=== PATIENT | male | born 1975 | race Caucasian/White ===

== ENCOUNTER 2023-07-05 16:10 | Emergency (ER) | payer OTHER ==
--- NOTE | 2023-07-05 16:15 | ERPHSYRPT ---
- History of Present Illness Time Seen by Provider: 07/05/23 16:15 Source: patient Exam Limitations: no limitations Physician History: This is a 48-year-old white male patient who is obese and presents with bilateral leg swelling right side worse than left. He has had this issue intermittently for the last 3 years. He has no known clotting disorder. He has not had any recent long travel in a car or airplane. He does have a history of IV drug abuse. He has a history of asthma, hyperlipidemia, hypertension and narcolepsy. He denies chest pain. He denies shortness of breath and he denies cough and he denies hemoptysis. Method of Injury: other (No injury) Severity of Pain-Max: none Severity of Pain-Current: none Lower Extremities Pain: other: bilateral (No pain just swelling right below the knee greater than left) Modifying Factors: Improves With: nothing Associated Symptoms: none Allergies/Adverse Reactions: No Known Drug Allergies Allergy (Verified 07/05/23 16:45) Home Medications: Buprenorphine HCl/Naloxone HCl [Buprenorphin-Naloxon 8-2 mg Sl] 2.5 each SL DAILY 07/05/23 [History] Hx Tetanus, Diphtheria Vaccination/Date Given: No Hx Influenza Vaccination/Date Given: No Hx Pneumococcal Vaccination/Date Given: No Travel Risk - International Travel Have you traveled outside of the country in past 3 weeks: No - Coronavirus Screening Are you exhibiting any of the following symptoms?: No Close contact with a COVID-19 positive Pt in past 14-21 Days: No - Review of Systems Constitutional: No Symptoms Eyes: No Symptoms Ears, Nose, & Throat: No Symptoms Respiratory: No Symptoms Cardiac: No Symptoms Abdominal/Gastrointestinal: No Symptoms Genitourinary Symptoms: No Symptoms Musculoskeletal: No Symptoms Skin: No Symptoms, Other Neurological: No Symptoms Psychological: No Symptoms - Past Medical History Pertinent Past Medical History: Yes Neurological History: No Pertinent History ENT History: No Pertinent History Cardiac History: High Cholesterol, Hypertension Respiratory History: Asthma Endocrine Medical History: No Pertinent History Musculoskeletal History: No Pertinent History GI Medical History: No Pertinent History History: No Pertinent History Psycho-Social History: No Pertinent History Male Reproductive Disorders: No Pertinent History Other Medical History: narcolepsy - Past Surgical History Past Surgical History: Yes Neuro Surgical History: No Pertinent History Cardiac: No Pertinent History Respiratory: No Pertinent History Gastrointestinal: Hernia Repair Genitourinary: No Pertinent History Musculoskeletal: No Pertinent History Male Surgical History: No Pertinent History Other Surgical History: TEETH REMOVED - Social History Smoking Status: Current every day smoker How long have you smoked: 20 Exposure to second hand smoke: No Drug Use: none Patient Lives Alone: No - Nursing Vital Signs Nursing Vital Signs: Initial Vital Signs Temperature 97.4 F 07/05/23 16:32 Pulse Rate 94 H 07/05/23 16:32 Blood Pressure 157/104 07/05/23 16:32 O2 Sat by Pulse Oximetry 95 07/05/23 16:32 Pain Scale Pain Intensity 0 - Physical Exam General Appearance: no apparent distress, alert, anxiety Eyes, Ears, Nose, Throat Exam: normal ENT inspection, moist mucous membranes Neck Exam: normal inspection, non-tender, supple, full range of motion Cardiovascular/Respiratory Exam: chest non-tender, no respiratory distress Gastrointestinal/Abdominal Exam: non-tender Back Exam: normal inspection, normal range of motion, No CVA tenderness, No vertebral tenderness Hips Exam: bilateral: non-tender, normal inspection, normal range of motion, no evidence of injury Legs Exam: bilateral leg: non-tender, normal inspection, normal range of motion, no evidence of injury Knees Exam: bilateral knee: non-tender, normal inspection, normal range of motion, no evidence of injury Ankle Exam: bilateral ankle: swelling (Right side worse than left), other (Chr onic venous stasis disease right side greater than left side.) Foot Exam: bilateral foot: non-tender, normal inspection, normal range of motion, no evidence of injury Neuro/Tendon Exam: normal sensation, normal motor functions, normal tendon functions Mental Status Exam: alert, oriented x 3, cooperative Skin Exam: other (Chronic venous stasis disease/pigmentation right side worse than left) SpO2 Interpretation: normal O2 Delivery: Room Air - Course Nursing assessment & vital signs reviewed: Yes Ordered Tests: Active Orders 24 hr Category Date Time Status ULTRASOUND BILATERAL LOWER EXTREMITY [VENOUS BILATERAL Exams 07/05/23 17:32 Taken EXTREMITY] [US] Stat BMP Stat Lab 07/05/23 18:15 Completed Lab/Rad Data: Laboratory Result Diagrams 07/05/23 18:15 Laboratory Results 07/05/23 Range/Units 18:15 Sodium 142 (137-145) mmol/L Potassium 4.0 (3.5-5.1) mmol/L Chloride 107 (98-107) mmol/L Carbon Dioxide 25 (22-30) mmol/L Anion Gap 14.2 (5-15) MEQ/L BUN 17 (9-20) mg/dL Creatinine 1.20 (0.66-1.25) mg/dL Estimated GFR > 60.0 ML/MIN Glucose 105 (74-106) mg/dL Calcium 9.0 (8.4-10.2) mg/dL - Progress Progress: unchanged Progress Note: 07/05/23 18:17 This patient's medical issue is 1 of moderate complexity the level of complexity in the work-up performed is based on review of the patient's past medical history, review of the patient's medication list, review of the patient's drug allergy list, history of present illness and physical findings on examination. The work-up in this patient includes placement of an intravenous line, CBC, BMP, bilateral lower extremity venous ultrasound. Venous ultrasound was interpreted by the car sales consultant/technologist. The patient has greater saphenous vein nonoccluded thrombus seen from proximal thigh to distal calf bilaterally. These appear old. There is no evidence of deep venous thromboses 07/05/23 18:53 07/05/23 18:53 Patient left AGAINST MEDICAL ADVICE. He did not want to wait for pending laboratory results or discharge/follow-up instructions. Patient is awake alert oriented and is aware his actions of leaving AGAINST MEDICAL ADVICE may cause him harm if there are any significant abnormalities on his laboratory studies. He is to sign AGAINST MEDICAL ADVICE form. 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 Follow-up with your primary care provider on 07/08/2023 for further evaluation management.
[2023-07-05 16:45] VITALS: BP 157/104; PULSE 94; TEMP 97.4; O2SAT 95
[2023-07-05 18:31] LABS: ANION GAP 14.2 MEQ/L (5-15); BLOOD UREA NITROGEN 17 mg/dL (9-20); CHLORIDE 107 mmol/L (98-107); Carbon Dioxide 25 mmol/L (22-30); EST GLOMERULAR FILTRATION RATE > 60.0 ML/MIN; Glucose 105 mg/dL (74-106); SODIUM 142 mmol/L (137-145)
--- NOTE | 2023-07-05 23:17 | XRAY ---
Indication: Bilateral leg swelling. 2-dimensional sonogram and color Doppler imaging of the major venous vessels of the left and right leg performed. Comparison: None Nonoccluding thrombi seen throughout the greater saphenous vein bilaterally. No thrombus seen in the deep venous vessels of the left and right leg. Patent veins demonstrate normal compressibility and normal venous waveforms. Impression: Nonoccluding thrombi both greater saphenous veins. Comment: Preliminary report was given.
== END 2023-07-05 18:54 | disposition left against medical advice (07) ==
LOC: ED 16:10
DX: I82.813 Embolism and thrombosis of superficial veins of lower extremities, bilateral (principal); E78.5 Hyperlipidemia, unspecified; I10 Essential (primary) hypertension; Z79.891 Long term (current) use of opiate analgesic; Z72.0 Tobacco use
CPT/HCPCS: 36415; 80048; 93970; 99283

== ENCOUNTER 2024-02-09 01:59 | Emergency (ER) | payer OTHER ==
[2024-02-09 02:10] VITALS: RESP 16; TEMP 97
--- NOTE | 2024-02-09 02:12 | ERPHSYRPT ---
- History of Present Illness Time Seen by Provider: 02/09/24 02:12 Source: patient Exam Limitations: no limitations Physician History: This is a 48-year-old white male patient who is not diabetic and is a patient of Dr. Flores and is on Suboxone and presents to the emergency department with redness and swelling to the genital area including the penis as well as other sites on his body where there is redness and swelling without abscess. Patient noticed a "tick bite" on several areas of his body including the genital and scrotal area. He said he took off the "tick". He did not see any legs on what ever this type of insect was. He has not had a fever. Patient has never had anything like this in the past. Timing/Duration: day(s) (3 days ago) Quality: itchy Severity: mild Location: extremities, genitalia Possible Causes: no cause identified, insect bite (He thinks may be an insect bite, possibly a tick) Associated Symptoms: denies symptoms Allergies/Adverse Reactions: No Known Drug Allergies Allergy (Verified 02/09/24 02:23) Home Medications: Buprenorphine HCl/Naloxone HCl [Buprenorphin-Naloxon 8-2 mg Sl] 2.5 each SL DAILY 07/05/23 [History] Hx Tetanus, Diphtheria Vaccination/Date Given: No Hx Influenza Vaccination/Date Given: No Hx Pneumococcal Vaccination/Date Given: No Travel Risk - International Travel Have you traveled outside of the country in past 3 weeks: No - Emerging Infectious Disease Are you exhibiting symptoms associated with any current EIDs: No - Review of Systems Constitutional: No Symptoms Eyes: No Symptoms Ears, Nose, & Throat: No Symptoms Respiratory: No Symptoms Cardiac: No Symptoms Abdominal/Gastrointestinal: No Symptoms Genitourinary Symptoms: No Symptoms Musculoskeletal: No Symptoms Skin: Cellulitis, Induration Neurological: No Symptoms Psychological: No Symptoms Endocrine: No Symptoms Hematologic/Lymphatic: No Symptoms Immunological/Allergic: No Symptoms All Other Systems: Reviewed and Negative - Past Medical History Pertinent Past Medical History: Yes Neurological History: No Pertinent History ENT History: No Pertinent History Cardiac History: High Cholesterol, Hypertension Respiratory History: Asthma Endocrine Medical History: No Pertinent History Musculoskeletal History: No Pertinent History GI Medical History: No Pertinent History History: No Pertinent History Psycho-Social History: No Pertinent History Male Reproductive Disorders: No Pertinent History Other Medical History: narcolepsy - Past Surgical History Past Surgical History: Yes Neuro Surgical History: No Pertinent History Cardiac: No Pertinent History Respiratory: No Pertinent History Gastrointestinal: Hernia Repair Genitourinary: No Pertinent History Musculoskeletal: No Pertinent History Male Surgical History: No Pertinent History Other Surgical History: TEETH REMOVED - Social History Smoking Status: Current every day smoker How long have you smoked: 20 Exposure to second hand smoke: No Drug Use: none Patient Lives Alone: No - Nursing Vital Signs Nursing Vital Signs: Initial Vital Signs Temperature 97.0 F 02/09/24 02:09 Pulse Rate 84 02/09/24 02:09 Respiratory Rate 16 02/09/24 02:09 Blood Pressure 159/104 02/09/24 02:09 O2 Sat by Pulse Oximetry 99 02/09/24 02:09 Pain Scale Pain Intensity 6 - Physical Exam General Appearance: no apparent distress, alert, anxiety Eye Exam: PERRL/EOMI, eyes nml inspection Ears, Nose, Throat Exam: normal ENT inspection, moist mucous membranes Neck Exam: normal inspection, non-tender, supple, full range of motion Respiratory Exam: airway intact, No chest tenderness, No respiratory distress Gastrointestinal/Abdomen Exam: No tenderness Male Genitalia Exam: penile lesion, other (Mild cellulitis in the pubic region) Rectal Exam: not done Back Exam: normal inspection, normal range of motion, CVA tenderness Extremity Exam: other (Small eschars on bilateral lower extremity.) Neurologic Exam: alert, oriented x 3, cooperative, morning show producer II-XII nml as tested, nml cerebellar function, nml station & gait, sensation nml Skin Exam: normal color, warm, dry Lymphatic Exam: No adenopathy SpO2 Interpretation: normal SpO2: 99 O2 Delivery: Room Air - Course Nursing assessment & vital signs reviewed: Yes Ordered Tests: Active Orders 24 hr Category Date Time Status ACO SDOH Referral ONCE Cons 02/09/24 02:22 Active - Progress Progress: unchanged Progress Note: 02/09/24 02:29 My medical decision making and the assignment of low complexity to this patient's medical issue today is based on review of the patient's past medical history, review of the patient's medication list, review of patient drug allergy list, history of present illness and physical findings on examination. The patient workup does not require any radiographic or laboratory studies at this time. Differential diagnosis includes cellulitis, insect bite, Counseled pt/family regarding: diagnosis, need for follow-up Medical Desision Making - Diagnostic Testing Diagnostic test were ordered, analyzed, and reviewed by me: No - Risk of complications The pt has a mod risk of morbidity or mortality based on: Need for prescription drug management - Departure Departure Disposition: Home Clinical Impression: Cellulitis, Induration of skin Condition: Stable Critical Care Time: No Referrals: TAN FLORES MD [Primary Care Provider] - Follow up/PCP as directed Additional Instructions: Keep all red and scabbed skin sites clean daily with soap and water. Do not apply lotions or ointments or creams to the site. Take your antibiotics as prescribed. Use Tylenol and ibuprofen for pain control. Return to the emergency department 24 hours for reevaluation. Return sooner if symptoms worsen Prescriptions: Doxycycline Hyclate 100 mg [Vibramycin 100 MG] 100 mg PO BID #14 tab
[2024-02-09] MEDS ORDERED: Vibramycin 100 MG ONE (02:35)
[2024-02-09] MEDS ORDERED: XYLOCAINE 1% HCL 20 ML MDV ONE (02:36)
[2024-02-09] MEDS ORDERED: Rocephin 1000 MG INJ ONE (02:36)
[2024-02-09] MEDS: Vibramycin 100 MG PO ONE (02:38)
[2024-02-09] MEDS: Rocephin 1000 MG INJ IM ONE (02:38)
[2024-02-09 02:49] VITALS: BP 145/88; PULSE 81; O2SAT 96
== END 2024-02-09 02:55 | disposition home or self-care (01) ==
LOC: ED 01:59
DX: L03.314 Cellulitis of groin (principal); R23.4 Changes in skin texture; E78.5 Hyperlipidemia, unspecified; I10 Essential (primary) hypertension; Z79.891 Long term (current) use of opiate analgesic; Z72.0 Tobacco use
CPT/HCPCS: 96372; 99283; J0696; A9270-GY

== ENCOUNTER 2024-03-01 21:36 | Emergency (ER) | payer OTHER ==
[2024-03-01 22:24] VITALS: RESP 18; TEMP 98
[2024-03-01] MEDS ORDERED: Adacel Vial IM ONE (22:45)
[2024-03-01] MEDS: Adacel Vial IM ONE (22:48)
[2024-03-01 23:21] VITALS: O2SAT 97
--- NOTE | 2024-03-02 00:55 | ERPHSYRPT ---
- History of Present Illness Time Seen by Provider: 03/02/24 00:30 Source: patient Exam Limitations: no limitations Patient Subjective Stated Complaint: C/O right lower leg injury a few hours prior coming to the ER today. Patient hit his thapa off of a bumper (metal). Triage Nursing Assessment: Patient ambulated back to ER. He is alert and oriented. No SOB. Skin tone normal. RLE wrapped with josh wrap and gauze. Dressing removed and a puncute wound noted under dressing; active bleeding present. Dressing reapplied. Skin distal to puncute is swollen. Physician History: 48yo m presents by private vehicle for puncture wound of right LE. Pt reports he hit his thapa on the side of a metal trailer earlier today and it has not stopped bleeding since. Pt states this occurred roughly 3h [employer]. Pt denies use of blood thinners, takes no medications other than suboxone. Pt is unsure of when his last tetanus shot was. Pt denies any fevers, rigors, cp, soa. Timing/Duration: today Quality: painful Severity: mild Location: extremities Allergies/Adverse Reactions: No Known Drug Allergies Allergy (Verified 03/01/24 22:17) Home Medications: Buprenorphine HCl/Naloxone HCl [Buprenorphin-Naloxon 8-2 mg Sl] 2.5 each SL DAILY 07/05/23 [History] Hx Tetanus, Diphtheria Vaccination/Date Given: No (needs tetanus) Hx Influenza Vaccination/Date Given: No Hx Pneumococcal Vaccination/Date Given: No Immunizations Up to Date: No Travel Risk - International Travel Have you traveled outside of the country in past 3 weeks: No - Emerging Infectious Disease Are you exhibiting symptoms associated with any current EIDs: No - Review of Systems Constitutional: No Symptoms Respiratory: No Symptoms Cardiac: No Symptoms Skin: Skin Lesions Neurological: No Symptoms - Past Medical History Pertinent Past Medical History: Yes Neurological History: No Pertinent History ENT History: No Pertinent History Cardiac History: High Cholesterol, Hypertension Respiratory History: Asthma Endocrine Medical History: No Pertinent History Musculoskeletal History: No Pertinent History GI Medical History: Hernia History: No Pertinent History Psycho-Social History: No Pertinent History Male Reproductive Disorders: No Pertinent History Other Medical History: narcolepsy, kidney stones - Past Surgical History Past Surgical History: Yes Neuro Surgical History: No Pertinent History Cardiac: No Pertinent History Respiratory: No Pertinent History Gastrointestinal: Hernia Repair Genitourinary: No Pertinent History Musculoskeletal: No Pertinent History Male Surgical History: No Pertinent History Other Surgical History: TEETH REMOVED, stents placed for kidney stones - Social History Smoking Status: Never smoker How long have you smoked: 20 Exposure to second hand smoke: No Drug Use: none Patient Lives Alone: No - Social Determinants of Health Will the patient participate in the screening: Yes Do you worry about a steady place to live?: No Do you have any problems with any of the following?: No known problems In the past 12 months,have you had to go without utilities?: No Transportation Issues: No Has anyone in your support network made you feel unsafe?: No Have you or anyone in your house had to go without enough: No - Nursing Vital Signs Nursing Vital Signs: Initial Vital Signs Temperature 98 F 03/01/24 22:18 Pulse Rate 89 03/01/24 22:18 Respiratory Rate 18 03/01/24 22:18 Blood Pressure 156/95 03/01/24 22:18 O2 Sat by Pulse Oximetry 94 L 03/01/24 22:18 Pain Scale Pain Intensity 0 - Physical Exam General Appearance: no apparent distress, alert Respiratory Exam: normal breath sounds, airway intact, No respiratory distress Cardiovascular Exam: regular rate/rhythm, normal heart sounds, No edema Skin Exam: normal color, warm, dry, other (1x1cm superficial puncture wound overlying right tibia distal to tibial plateau, lesion non-hemostatic w/ direct pressure, clean edges, no foreign body) SpO2 Interpretation: normal SpO2: 97 O2 Delivery: Room Air Procedures - Laceration/Wound Repair Right Lower Anterior Medial Distal Other Time of Procedure: 01:15 Wound Location: Right, lower leg Wound Length (cm): 1 (1x1cm) Wound's Depth, Shape: superficial Wound Explored: no foreign body noted Irrigated: Yes Hibiclens Prep: Yes Anesthesia: local, 1% Lidocaine Volume Anesthetic (ccs): 3 Wound Debrided: extensive Sterile Dressing Applied?: Yes Splint Applied?: No Sling Applied?: No Progress: 03/02/24 01:43 bleeding stopped w/ 2 silver nitrate sticks applied dermabond over wound wound hemostatic, added non-stick gauze w/ coband Ordered Tests: Active Orders 24 hr Category Date Time Status LOWER LEG Stat Exams 03/01/24 22:24 Taken Medication Summary Discontinued Medications Generic Name Dose Route Start Last Admin Trade Name Freq PRN Reason Stop Dose Admin Diphtheria/Tetanus/Acell Pertussis 0.5 ml 03/01/24 22:25 03/01/24 22:48 Tdap --Diph,Pertuss(Acell),Tet Vac/Pf 0.5 Ml Vial IM 03/01/24 22:26 0.5 ml .ONCE ONE Administration Diphtheria/Tetanus/Acell Pertussis Confirm 03/01/24 22:45 Tdap --Diph,Pertuss(Acell),Tet Vac/Pf 0.5 Ml Vial Administered 03/01/24 22:46 Dose 0.5 ml IM .STK-MED ONE Lidocaine HCl 3 ml 03/02/24 01:16 03/02/24 01:18 Lidocaine Hcl 1% 20 Ml Mdv 20 Ml Ml IJ 03/02/24 01:17 3 ml STAT ONE Administration Lidocaine HCl Confirm 03/02/24 01:18 Lidocaine Hcl 1% 20 Ml Mdv 20 Ml Ml Administered 03/02/24 01:19 Dose 3 ml .ROUTE .STK-MED ONE Silver Nitrate Confirm 03/02/24 00:56 Silver Nitrate 1 Pkt Each Administered 03/02/24 00:57 Dose 1 pkt TP .STK-MED ONE Silver Nitrate 2 pkt 03/02/24 01:14 03/02/24 01:15 Silver Nitrate 1 Pkt Each TP 03/02/24 01:15 2 pkt NOW ONE Administration - Progress Progress: improved Progress Note: 03/02/24 01:45 puncture wound of left lower extremity cauterized w/ silver nitrate, bleeding resolved, applied dermabond and non-stick gauze dressing will send 1wk bactrim for prophylactic antibiotic coverage Return to ED if: bleeding restarts and will not resolve w/ direct pressure, develop fevers Medical Desision Making - Diagnostic Testing Diagnostic test were ordered, analyzed, and reviewed by me: Yes Radiological Interpretation: Interpreted by me - Risk of complications Low Risk: Low risk of morbidity from additional dx testing or treatment - Departure Departure Disposition: Home Clinical Impression: Puncture wound Condition: Stable Critical Care Time: No Referrals: TAN FLORES MD [Primary Care Provider] - Follow up/PCP as directed Instructions: Taking care of cuts, scrapes, and puncture wounds, Wound Care ED Additional Instructions: puncture wound of left lower extremity cauterized w/ silver nitrate, bleeding resolved, applied dermabond and non-stick gauze dressing will send 1wk bactrim for prophylactic antibiotic coverage Return to ED if: bleeding restarts and will not resolve w/ direct pressure, develop fevers Prescriptions: Sulfamethoxazole/Trimethoprim [Bactrim Ds Tablet] 1 each PO BID #14 tablet
[2024-03-02] MEDS ORDERED: ARZOL Silver Nitrate Applicator TP ONE (00:56)
[2024-03-02] MEDS: ARZOL Silver Nitrate Applicator TP ONE (01:15)
[2024-03-02] MEDS: XYLOCAINE 1% HCL 20 ML MDV IJ ONE (01:18)
[2024-03-02] MEDS ORDERED: XYLOCAINE 1% HCL 20 ML MDV ONE (01:18)
[2024-03-02 01:20] VITALS: BP 150/80; PULSE 82
--- NOTE | 2024-03-02 08:39 | XRAY ---
Indication: Pain and swelling following injury. Comparison: None 2 view right lower leg demonstrates mild medial subcutaneous venous varicosities and tiny lower leg soft tissue calcified granuloma. No other bony, articular, or soft tissue abnormalities.
== END 2024-03-02 01:37 | disposition home or self-care (01) ==
LOC: ED 21:36
DX: S81.831A Puncture wound without foreign body, right lower leg, initial encounter (principal); W22.09XA Striking against other stationary object, initial encounter; E78.5 Hyperlipidemia, unspecified; I10 Essential (primary) hypertension; Z79.891 Long term (current) use of opiate analgesic; Z23 Encounter for immunization
CPT/HCPCS: 12001; 73590; 90471; 90715; 96372; 99283; A9270-GY

== ENCOUNTER 2025-01-28 03:53 | Emergency (ER) | payer OTHER ==
[2025-01-28 04:35] LABS: Absolute Neutrophil Ct (ANC) 2.94 x10^3/uL (1.78-5.38); BASOPHIL % 0.7 % (0.2-1.2); Basophil (Absolute #) 0.04 x10^3/uL (0.01-0.08); Eosinophil % 4.9 % (0.8-7.0); Eosinophil (Absolute #) 0.29 x10^3/uL (0.04-0.54); Hematocrit 40.3 % (40.1-51.0); Hemoglobin 14.1 g/dL (13.7-17.5); IMMATURE GRAN # 0.02 x10^3u/L (0.001-0.031); IMMATURE GRAN % 0.3 % (0.001-0.429); Lymphocyte (Absolute #) 2.09 x10^3/uL (1.32-3.57); Lymphocytes % 35.6 % (21.8-53.1); Mean Corpuscular Hemoglobin 31.5 pg (25.7-32.2); Mean Platelet Volume 9.3 fL (9.4-12.4); Monocyte (Absolute #) 0.49 x10^3/uL (0.30-0.82); Monocytes % 8.3 % (5.3-12.2); Neutrophil % 50.2 % (34.0-67.9); Platelet Count 281 x10^3/uL (163-337); Red Blood Count 4.48 x10^6/uL (4.63-6.08); White Blood Count 5.9 x10^3/uL (4.23-9.07)
--- NOTE | 2025-01-28 04:41 | ERPHSYRPT ---
- History of Present Illness Time Seen by Provider: 01/28/25 04:10 Source: patient Exam Limitations: no limitations Patient Subjective Stated Complaint: pt states "my depression got the worse of me tonight." pt states "I had thoughts of overdosing on heroin or fentayl tonight." pt states "I wanted to talk to someone because I don't want to hurt myself." pt states he stopped meth 2 months ago cold turkey. pt statest that he used meth today. pt states that he slipped a few weeks ago and used meth then too Triage Nursing Assessment: pt ambulated into the er; pt is axo x4; pt is anxious; pt denies pain; skin PDW; no respiratory distress present, pt denies being SOB; hypertensive Physician History: 49-year-old male presents to our ED for evaluation of suicidal ideation. Patient states that he is depressed. Patient is having thoughts of overdosing on heroin or fentanyl. Patient has attempted to commit suicide via heroin overdose in the past. Patient admits to a long history of heroin and meth use. Patient stopped meth 2 months ago but relapsed today. No pain. Symptoms are moderate in intensity. No specific worsening or improving factors. Patient voices no other complaints or concerns at this time. Portions of this note were created with voice recognition technology. There may be grammatical, spelling, punctuation or sound alike errors Timing/Duration: today Severity of Symptoms-Max: moderate Context related to: other Suicidal thoughts: specific plan Associated Symptoms: denies symptoms Previous symptoms: same symptoms as today Allergies/Adverse Reactions: No Known Drug Allergies Allergy (Verified 01/28/25 04:00) Home Medications: Buprenorphine HCl/Naloxone HCl [Suboxone 8 mg-2 mg Sl Film] 3 film SL DAILY 01/28/25 [History] buPROPion HCL [Bupropion Xl] 300 mg PO DAILY 01/28/25 [History] Hx Tetanus, Diphtheria Vaccination/Date Given: No (unsure) Hx Influenza Vaccination/Date Given: No Hx Pneumococcal Vaccination/Date Given: No Travel Risk - International Travel Have you traveled outside of the country in past 3 weeks: No - Emerging Infectious Disease Are you exhibiting symptoms associated with any current EIDs: No - Past Medical History Pertinent Past Medical History: Yes Neurological History: No Pertinent History ENT History: No Pertinent History Cardiac History: High Cholesterol, Hypertension Respiratory History: Asthma Endocrine Medical History: No Pertinent History Musculoskeletal History: No Pertinent History GI Medical History: Hernia History: No Pertinent History Psycho-Social History: Anxiety, Depression Male Reproductive Disorders: No Pertinent History Other Medical History: narcolepsy, kidney stones - Past Surgical History Past Surgical History: Yes Neuro Surgical History: No Pertinent History Cardiac: No Pertinent History Respiratory: No Pertinent History Gastrointestinal: Hernia Repair Genitourinary: No Pertinent History Musculoskeletal: No Pertinent History Male Surgical History: No Pertinent History Other Surgical History: TEETH REMOVED, stents placed for kidney stones - Social History Smoking Status: Current every day smoker How long have you smoked: 20 Exposure to second hand smoke: Yes Drug Use: methamphetamines, heroin - Social Determinants of Health Will the patient participate in the screening: Yes Do you worry about a steady place to live?: No Do you have any problems with any of the following?: No known problems In the past 12 months,have you had to go without utilities?: No Transportation Issues: No Has anyone in your support network made you feel unsafe?: No Have you or anyone in your house had to go w/o enough food: No - Review of Systems Constitutional: No Symptoms, No Fever, No Chills Eyes: No Symptoms Ears, Nose, & Throat: No Symptoms Respiratory: No Symptoms, No Cough, No Dyspnea Cardiac: No Symptoms, No Chest Pain, No Edema, No Syncope Abdominal/Gastrointestinal: No Symptoms, No Abdominal Pain, No Nausea, No Vomiting, No Diarrhea Genitourinary Symptoms: No Symptoms, No Dysuria Musculoskeletal: No Symptoms, No Back Pain, No Neck Pain Skin: No Symptoms, No Rash Neurological: No Symptoms, No Dizziness, No Focal Weakness, No Sensory Changes Psychological: No Symptoms Endocrine: No Symptoms Hematologic/Lymphatic: No Symptoms Immunological/Allergic: No Symptoms All Other Systems: Reviewed and Negative - Nursing Vital Signs Nursing Vital Signs: Initial Vital Signs Pulse Rate 94 H 01/28/25 04:08 Respiratory Rate 20 01/28/25 04:08 Blood Pressure 149/101 01/28/25 04:08 O2 Sat by Pulse Oximetry 95 01/28/25 04:08 Pain Scale Pain Intensity 0 - Physical Exam General Appearance: no apparent distress Eyes, Ears, Nose, Throat Exam: normal ENT inspection, moist mucous membranes Neck Exam: normal inspection, non-tender, supple Respiratory Exam: normal breath sounds, airway intact, wheezing, No respiratory distress Cardiovascular Exam: regular rate/rhythm, No edema Gastrointestinal/Abdominal Exam: soft, No tenderness, No distention Extremities Exam: normal inspection, normal range of motion, No evidence of injury, No edema Current Suicidality: denies suicide plan Neurological Exam: alert, human resources leader II-XII nml as tested, oriented x 3 Appearance: appropriate appearance, appropriate insight Behavior/Eye Contact/Speech: alert & cooperative, normal speech, avoids eye contact Thoughts/Hallucinations: normal thought pattern, no apparent hallucination, auditory hallucinations Skin Exam: normal color, warm, dry, No rash SpO2 Interpretation: normal SpO2: 95 O2 Delivery: Room Air - Course Nursing assessment & vital signs reviewed: Yes EKG Interpreted by Me: RATE (93), Sinus Rhythm, Left [place] Deviation, NORMAL INTERVALS, NORMAL QRS Ordered Tests: Active Orders 24 hr Category Date Time Status Spinning Bath Patroller STAT Care 01/28/25 04:16 Active EKG-ER Only STAT Care 01/28/25 04:16 Active ACETAMINOPHEN Stat Lab 01/28/25 04:34 Completed CBC W DIFF Stat Lab 01/28/25 04:34 Completed CMP Stat Lab 01/28/25 04:34 Completed ETHYL ALCOHOL Stat Lab 01/28/25 04:34 Completed SALICYLATE Stat Lab 01/28/25 04:34 Completed Urine Triage Profile Stat Lab 01/28/25 05:02 Completed Respiratory Therapy Assessment DAILY RT 01/28/25 05:24 Active Medication Summary Discontinued Medications Generic Name Dose Route Start Last Admin Trade Name Freq PRN Reason Stop Dose Admin Albuterol Sulfate 2.5 mg 01/28/25 05:20 01/28/25 05:26 Albuterol Sulfate 2.5 Mg/3 Ml Neb IH 01/28/25 05:21 2.5 mg STAT ONE Administration Albuterol Sulfate Confirm 01/28/25 05:23 Albuterol Sulfate 2.5 Mg/3 Ml Neb Administered 01/28/25 05:24 Dose 2.5 mg IH .STK-MED ONE Nicotine 21 mg 01/28/25 05:03 01/28/25 05:14 Nicotine 21 Mg/Patch Patch TOP 01/28/25 05:04 21 mg STAT ONE Administration Lab/Rad Data: Laboratory Result Diagrams 01/28/25 04:34 01/28/25 04:34 Laboratory Results 01/28/25 01/28/25 01/28/25 Range/Units 05:02 04:34 04:34 WBC (4.23-9.07) x10^3/uL RBC (4.63-6.08) x10^6/uL Hgb (13.7-17.5) g/dL Hct (40.1-51.0) % MCV (79.0-92.2) fL MCH (25.7-32.2) pg MCHC (32.3-36.5) g/dL RDW (11.6-14.4) % Plt Count (163-337) x10^3/uL MPV (9.4-12.4) fL Gran % (34.0-67.9) % Immature Gran % (Auto) (0.001-0.429) % Nucleat RBC Rel Count (0.00-0.2) % Eos # (Auto) (0.04-0.54) x10^3/uL Immature Gran # (Auto) (0.001-0.031) x10^3u/L Absolute Lymphs (auto) (1.32-3.57) x10^3/uL Absolute Monos (auto) (0.30-0.82) x10^3/uL Absolute Nucleated RBC (0.00-0.012) x10^3u/L Lymphocytes % (21.8-53.1) % Monocytes % (5.3-12.2) % Eosinophils % (0.8-7.0) % Basophils % (0.2-1.2) % Absolute Granulocytes (1.78-5.38) x10^3/uL Basophils # (0.01-0.08) x10^3/uL Sodium 139 (135-145) mmol/L Potassium 3.7 (3.5-5.1) mmol/L Chloride 104 (98-107) mmol/L Carbon Dioxide 22 (22-30) mmol/L Anion Gap 16.3 H (5-15) MEQ/L BUN 20 (9-20) mg/dL Creatinine 1.23 (0.66-1.25) mg/dL Estimated GFR 71.5 ML/MIN Glucose 108 H (74-106) mg/dL Calcium 9.6 (8.4-10.2) mg/dL Total Bilirubin 1.60 H (0.2-1.3) mg/dL AST 71 H (17-59) U/L ALT 78 H (0-50) U/L Alkaline Phosphatase 63 (38-126) U/L Serum Total Protein 7.2 (6.3-8.2) g/dL Albumin 4.4 (3.5-5.0) g/dL Salicylates < 1.0 L (2-20) mg/dL Urine Opiates Level NEGATIVE (NEGATIVE) Ur Methadone NEGATIVE (NEGATIVE) Acetaminophen < 10 L (10-30) ug/ml Urine Barbiturates NEGATIVE (NEGATIVE) Ur Phencyclidine (PCP) NEGATIVE (NEGATIVE) Urine Amphetamine POSITIVE A (NEGATIVE) U Benzodiazepine Level NEGATIVE (NEGATIVE) Urine Cocaine NEGATIVE (NEGATIVE) Urine Marijuana (THC) NEGATIVE (NEGATIVE) Ethyl Alcohol < 10 (0-10) mg/dL Influenza Type A Ag NEGATIVE (NEGATIVE) Influenza Type B Ag NEGATIVE (NEGATIVE) RSV (PCR) NEGATIVE (NEGATIVE) SARS-CoV-2 (PCR) NEGATIVE (NEGATIVE) 01/28/25 Range/Units 04:34 WBC 5.9 (4.23-9.07) x10^3/uL RBC 4.48 L (4.63-6.08) x10^6/uL Hgb 14.1 (13.7-17.5) g/dL Hct 40.3 (40.1-51.0) % MCV 90.0 (79.0-92.2) fL MCH 31.5 (25.7-32.2) pg MCHC 35.0 (32.3-36.5) g/dL RDW 12.0 (11.6-14.4) % Plt Count 281 (163-337) x10^3/uL MPV 9.3 L (9.4-12.4) fL Gran % 50.2 (34.0-67.9) % Immature Gran % (Auto) 0.3 (0.001-0.429) % Nucleat RBC Rel Count 0.0 (0.00-0.2) % Eos # (Auto) 0.29 (0.04-0.54) x10^3/uL Immature Gran # (Auto) 0.02 (0.001-0.031) x10^3u/L Absolute Lymphs (auto) 2.09 (1.32-3.57) x10^3/uL Absolute Monos (auto) 0.49 (0.30-0.82) x10^3/uL Absolute Nucleated RBC 0.00 (0.00-0.012) x10^3u/L Lymphocytes % 35.6 (21.8-53.1) % Monocytes % 8.3 (5.3-12.2) % Eosinophils % 4.9 (0.8-7.0) % Basophils % 0.7 (0.2-1.2) % Absolute Granulocytes 2.94 (1.78-5.38) x10^3/uL Basophils # 0.04 (0.01-0.08) x10^3/uL Sodium (135-145) mmol/L Potassium (3.5-5.1) mmol/L Chloride (98-107) mmol/L Carbon Dioxide (22-30) mmol/L Anion Gap (5-15) MEQ/L BUN (9-20) mg/dL Creatinine (0.66-1.25) mg/dL Estimated GFR ML/MIN Glucose (74-106) mg/dL Calcium (8.4-10.2) mg/dL Total Bilirubin (0.2-1.3) mg/dL AST (17-59) U/L ALT (0-50) U/L Alkaline Phosphatase (38-126) U/L Serum Total Protein (6.3-8.2) g/dL Albumin (3.5-5.0) g/dL Salicylates (2-20) mg/dL Urine Opiates Level (NEGATIVE) Ur Methadone (NEGATIVE) Acetaminophen (10-30) ug/ml Urine Barbiturates (NEGATIVE) Ur Phencyclidine (PCP) (NEGATIVE) Urine Amphetamine (NEGATIVE) U Benzodiazepine Level (NEGATIVE) Urine Cocaine (NEGATIVE) Urine Marijuana (THC) (NEGATIVE) Ethyl Alcohol (0-10) mg/dL Influenza Type A Ag (NEGATIVE) Influenza Type B Ag (NEGATIVE) RSV (PCR) (NEGATIVE) SARS-CoV-2 (PCR) (NEGATIVE) - Progress Progress: improved Progress Note: Patient is a 49-year-old male presents to our ED for evaluation of suicidal ideation. Physical exam revealed faint wheezing. Patient states he wheezes chronically. Patient denied shortness of breath. Patient received a breathing treatment. Wheezing essentially resolved. Vitals within normal limits. We are awaiting behavioral health evaluation for final disposition. Toxicology workup significant for amphetamine. However patient advised that he used meth amphetamine today. It is currently the change of shift. Patient endorsed to Dr. Dc for final disposition. Portions of this note were created with voice recognition technology. There may be grammatical, spelling, punctuation or sound alike errors Complexity of problems addressed is moderate acute complicated. No critical care time. Complex of data reviewed and analyzed as extensive. Test ordered test reviewed results analyzed and correlated clinically with history and physical exam. Management discussed with behavioral health service. We are awaiting final disposition. Risk of complication and or risk of morbidity/mortality of patient management is high. Patient will likely be transferred for further evaluation/behavioral health services. Vital stable. Time spent to transfer patient is approximately 20 minutes. Plan of care established for shared decision making. No social determinants of health present to impede follow-up. Portions of this note were created with voice recognition technology. There may be grammatical, spelling, punctuation or sound alike errors 01/28/25 07:11 Counseled pt/family regarding: lab results, diagnosis - Departure Departure Disposition: Transfer Clinical Impression: Suicidal ideation, Methamphetamine use Condition: Stable Critical Care Time: No Referrals: MARISSA NELSON DO [Primary Care Provider, [facility]] - Follow up/PCP as directed
[2025-01-28 04:59] LABS: ACETAMINOPHEN < 10 ug/ml (10-30); ALBUMIN 4.4 g/dL (3.5-5.0); ALKALINE PHOSPHATASE 63 U/L (38-126); ANION GAP 16.3 MEQ/L (5-15); BLOOD UREA NITROGEN 20 mg/dL (9-20); CHLORIDE 104 mmol/L (98-107); Calcium 9.6 mg/dL (8.4-10.2); Carbon Dioxide 22 mmol/L (22-30); Creatinine 1 1.23 mg/dL (0.66-1.25); EST GLOMERULAR FILTRATION RATE 71.5 ML/MIN; ETHYL ALCOHOL < 10 mg/dL (0-10); Glucose 108 mg/dL (74-106); Potassium 3.7 mmol/L (3.5-5.1); SALICYLATE < 1.0 mg/dL (2-20); SGOT/AST 71 U/L (17-59); SGPT/ALT 78 U/L (0-50); SODIUM 139 mmol/L (135-145); Total Protein 7.2 g/dL (6.3-8.2)
[2025-01-28 05:12] LABS: INFLUENZA A NEGATIVE (NEGATIVE); INFLUENZA B NEGATIVE (NEGATIVE); RESPIRATORY SYNCTIAL VIRUS NEGATIVE (NEGATIVE); SARS-CoV-2 Xpert Express NEGATIVE (NEGATIVE)
[2025-01-28] MEDS: Nicoderm CQ 21 MG TOP ONE (05:14)
[2025-01-28] MEDS ORDERED: PROVENTIL 2.5 MG/3 ML NEB IH ONE (05:23)
[2025-01-28] MEDS: PROVENTIL 2.5 MG/3 ML NEB IH ONE (05:26)
[2025-01-28 05:45] LABS: Barbiturate,Urine NEGATIVE (NEGATIVE); Benzodiazepine,Urine NEGATIVE (NEGATIVE); Cocaine,Urine NEGATIVE (NEGATIVE); Methadone,Urine NEGATIVE (NEGATIVE); Opiate,Urine NEGATIVE (NEGATIVE); PCP,Urine NEGATIVE (NEGATIVE); THC,Urine NEGATIVE (NEGATIVE)
[2025-01-28 06:10] LABS: Amphetamine,Urine POSITIVE (NEGATIVE)
[2025-01-28 08:22] VITALS: O2SAT 97
[2025-01-28 09:06] VITALS: BP 98/66; PULSE 70; RESP 18
== END 2025-01-28 09:05 ==
LOC: ED 03:53
DX: R45.851 Suicidal ideations (principal); F15.90 Other stimulant use, unspecified, uncomplicated; F32.A Depression, unspecified; Z79.891 Long term (current) use of opiate analgesic; Z79.899 Other long term (current) drug therapy; Z72.0 Tobacco use
CPT/HCPCS: 0241U; 36415; 80053; 80143; 80179; 80307; 82077; 85025; 93005; 93041; 94640; 99285; J7609; A9270-GY